=== PATIENT | male | born 1985 | race Caucasian/White ===

== ENCOUNTER 2018-02-22 07:19 | Day surgery (SDC) | payer OTHER ==
[2018-02-21 11:26] VITALS: BMI 33.2
[2018-02-22] MEDS ORDERED: MIDAZOLAM HCL 2 MG/2 ML SINGLE DOSE VIAL ONE ×2 (10:13)
[2018-02-22] MEDS ORDERED: SUCCINYLCHOLINE CHLORIDE 200 MG/10 ML VIAL ONE (10:18)
--- NOTE | 2018-02-22 10:19 | HP ---
Admitting History and Physical - Admission Chief Complaint: Right chest wall mass History Source: Patient Limitations to Obtaining History: No Limitations - Smoking History Smoking history: Never smoked Aproximately how many cigarettes per day: 0 - Alcohol/Substance Use Hx Alcohol Use: No Home Medications - Allergies Allergies/Adverse Reactions: Allergies Allergy/AdvReac Type Severity Reaction Status Date / Time No Known Allergies Allergy Verified 02/22/18 08:16 - Home Medications Home Medications: Ambulatory Orders Acetaminophen [Tylenol] 325 mg PO PRN 02/21/18 Family Disease History - Family Disease History Family History: Unremarkable Review of Systems - Review of Systems Constitutional: denies: Chills, Fever Eyes: reports: No Symptoms Neck: reports: No Symptoms Cardiovascular: reports: No Symptoms Respiratory: reports: No Symptoms Gastrointestinal: reports: No Symptoms Pain Intensity: 2 Physical Examination Vital Signs: Vital Signs Temperature 98.6 F 02/22/18 08:16 Pulse Rate 77 02/22/18 08:16 Respiratory Rate 20 02/22/18 08:16 Blood Pressure 139/85 02/22/18 08:16 O2 Sat by Pulse Oximetry (%) 98 02/22/18 08:03 Constitutional: Yes: Calm HENT: Yes: WNL Neck: Yes: WNL Cardiovascular: Yes: WNL Respiratory: Yes: WNL Gastrointestinal: Yes: WNL Musculoskeletal: Yes: Other (Right chest wall mass) Neurological: Yes: Alert, Oriented Problem List - Problems (1) Mass of right chest wall Code(s): R22.2 - LOCALIZED SWELLING, MASS AND LUMP, TRUNK Assessment/Plan Right chest wall mass For open excision
[2018-02-22] MEDS ORDERED: ceFAZolin SODIUM 1 GM VIAL IVPB ONE (10:22)
[2018-02-22] MEDS ORDERED: LIDOCAINE 1%/EPI 1:100000 (50 ML MULTI DOSE VIAL) INF ONE ×2 (10:33)
[2018-02-22] MEDS ORDERED: PROMETHAZINE HCL 25 MG/1 ML VIAL IVPUSH PRN (11:13)
[2018-02-22] MEDS ORDERED: oxyCODONE HCL 5 MG TABLET PO PRN (11:13)
[2018-02-22] MEDS ORDERED: ONDANSETRON 4 MG/2 ML VIAL IVPUSH PRN (11:13)
[2018-02-22] MEDS ORDERED: LACTATED RINGERS SOLUTION 1,000 ML IV SCH (11:15)
[2018-02-22 11:47] VITALS: TEMP 98
--- NOTE | 2018-02-22 11:54 | OP ---
Operative Note - Note: Operative Date: 02/22/18 Pre-Operative Diagnosis: Right chest wall mass Operation: Excision of Right chest wall mass Post-Operative Diagnosis: Same as Pre-op Surgeon: Rian Luz Anesthesia: General Specimens Removed: Right chest wall mass Estimated Blood Loss (mls): 5 Operative Report Dictated: Yes
--- NOTE | 2018-02-22 12:21 | OP ---
DATE OF OPERATION: 02/22/2018 PREOPERATIVE DIAGNOSIS: Right chest wall mass. POSTOPERATIVE DIAGNOSIS: Right chest wall mass. PROCEDURE: Except of chest wall mass. SPECIMEN: Right chest wall mass approximately 6 cm x 5 cm in size. ESTIMATED BLOOD LOSS: 5 mL. DRAINS: None. ANESTHESIA: General and local. REASON FOR PROCEDURE: This is a 32-year-old gentleman who presented to the office for evaluation of a right chest wall mass. After evaluation and explained the different options, he decided to proceed with an excision of the right chest wall mass. Risks and benefits of the procedure were explained. These included bleeding, infection, injury to surrounding structures, nerve injury, vessel injury, hematoma, seroma, recurrence, WA, DVT, PE as some of the complications. He understood and signed informed consent. DESCRIPTION OF PROCEDURE: The patient was placed supine on the operating room table. The area was prepped and draped in the usual sterile fashion. A time-out was performed. Lidocaine with epinephrine was injected over the area, and an incision was made with a 15-blade scalpel. The skin and subcutaneous tissue were dissected. Metzenbaum scissors were used to dissect the mass. The mass was noted to be fatty consistent with a likely lipoma. The mass was circumferentially dissected with a combination of Metzenbaum scissors and electrocautery. The mass was full excised and sent off the field. Hemostasis was achieved. The wound was irrigated. The deep tissue was closed using 3-0 Vicryl and the skin closed using 4-0 Biosyn. Sterile dressings were applied. The patient tolerated the procedure well and was transferred to the recovery room in stable condition. GERALD BUITRAGO M.D. [id number]
[2018-02-22 13:24] VITALS: BP 148/79; PULSE 76
--- NOTE | 2018-02-23 18:32 | PATH ---
Surgical Pathology Report Patient Name: CORTNEY SMILEY Med. Rec. #: [id number] /Age/Gender: 1985 (Age: 32) / M Account: [id number] Location: [facility] SURGICAL Taken: 02/22/2018 Received: 02/22/2018 Reported: 02/23/2018 Physicians: Rian Luz M.D. Specimen(s) Received MASS OF RIGHT CHEST WALL Clinical History Excision right chest wall mass Final Diagnosis RIGHT CHEST WALL MASS, EXCISION: MATURE ADIPOSE TISSUE, CONSISTENT WITH LIPOMA. Electronically Signed Mitzi Arroyo M.D. Gross Description Received in formalin, labeled "right chest wall mass" is a piece of yellow soft tissue weighing 13 g and measuring 4 x 3.2 x 1.7 cm. serial sections reveal homogeneous yellow adipose tissue. Precision [employer] sections are submitted in 2 cassettes. [place]/02/22/2018
== END 2018-02-22 13:31 | disposition home or self-care (01) ==
LOC: JASU-SURG 07:19
PROVIDERS: ATTEND Surgery
PROC: 0JB60ZZ Excision of Chest Subcutaneous Tissue and Fascia, Open Approach (ICD-10-PCS; principal; 2018-02-22 10:00)
DX: D17.1 Benign lipomatous neoplasm of skin and subcutaneous tissue of trunk (principal)
CPT/HCPCS: 88307-TC; 94760

== ENCOUNTER 2019-02-09 09:55 | Day surgery (SDC) | payer OTHER ==
[2019-02-08 15:06] VITALS: BMI 33.0
[2019-02-09 11:45] VITALS: TEMP 97.5
[2019-02-09 12:04] VITALS: BP 110/80; PULSE 68
--- NOTE | 2019-02-13 11:52 | PATH ---
Surgical Pathology Report Patient Name: CORTNEY SMILEY [facility]. Rec. #: [id number] /Age/Gender: 1985 (Age: 33) / M Account: [id number] Location: [facility] Taken: 02/09/2019 Received: 02/09/2019 Reported: 02/13/2019 Physicians: Terrell Reaves D.O. Specimen(s) Received A: POLYP FUNDUS B: BODY ANGULARIS Clinical History Abdominal discomfort Postoperative diagnosis: Gastritis and fundic polyp Polyp fundus r/o adenoma, body and angularis r/o H. pylori Final Diagnosis A. FUNDUS, POLYP, BIOPSY: MODERATE CHRONIC ACTIVE GASTRITIS, POLYPOID. IMMUNOSTAIN IS NEGATIVE FOR H. PYLORI ORGANISMS. B. BODY AND ANGULARIS, BIOPSY: MODERATE CHRONIC ACTIVE GASTRITIS. IMMUNOSTAIN IS NEGATIVE FOR H. PYLORI ORGANISMS. Electronically Signed Za Mast M.D. Gross Description A. Received in formalin, labeled "polyp fundus" are 2 lees, irregular portions of soft tissue averaging 0.3 cm. in greatest dimension. The specimens are submitted in toto in one cassette. B. Received in formalin, labeled "biopsy body and angularis" are 4 lees, irregular portions of soft tissue ranging from 0.2-0.4 cm. in greatest dimension. The specimens are submitted in toto in one cassette. 02/09/2019 saudi02/09/2019
== END 2019-02-09 12:34 | disposition home or self-care (01) ==
LOC: JASU-ENDO 09:55
PROVIDERS: ATTEND Internal Medicine Gastroenterology
PROC: 0DB68ZX Excision of Stomach, Via Natural or Artificial Opening Endoscopic, Diagnostic (ICD-10-PCS; principal; 2019-02-09 10:45)
DX: K29.50 Unspecified chronic gastritis without bleeding (principal); K31.7 Polyp of stomach and duodenum
CPT/HCPCS: 88305-TC; 88342-TC

== ENCOUNTER 2019-05-08 22:46 | Inpatient (IN) | payer OTHER ==
--- NOTE | 2019-05-08 23:11 | PDOC ---
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 The patient states his left leg also has pain described as an "zambian burn." The patient states he has never had this type of pain before. The patient denies any weakness, word slurring, facial weakness, headache, or neck pain. The patient originally denies any trauma to the affected areas. Upon further history the patient's friend at bedside who the patient states is a "brother from another mother" reminds the patient that he fell down 1 week ago and hit his left neck, left arm , and left leg. PCP: Dr. Sifuentes PSH: lipoma removal Social Hx: Denies smoking, drinking, or other substance usage Allergies: NKA, NKDA Past History - Past Medical History Allergies/Adverse Reactions: Allergies Allergy/AdvReac Type Severity Reaction Status Date / Time No Known Allergies Allergy Verified 02/22/18 08:16 Home Medications: Ambulatory Orders Cholecalciferol (Vitamin D3) [Vitamin D -] 400 unit PO DAILY 02/09/19 Pantoprazole Sodium [Protonix -] 20 mg PO DAILY #30 tablet.ec 02/09/19 Anemia: No Asthma: No Cancer: No Cardiac Disorders: No CVA: No COPD: No CHF: No Dementia: No Diabetes: No GI Disorders: Yes (H.PYLORI POSITIVE FINISHED ANTIBIOTIC [place]-01/16/19) Disorders: No HTN: No Hypercholesterolemia: Yes Liver Disease: No Seizures: No Thyroid Disease: No - Suicide/Smoking/Psychosocial Hx Smoking Status: No Smoking History: Never smoked Have you smoked in the past 12 months: No Number of Cigarettes Smoked Daily: 0 Hx Alcohol Use: No Drug/Substance Use Hx: No Substance Use Type: None Hx Substance Use Treatment: No Review of Systems - Review of Systems Able to Perform ROS?: Yes Comments:: CONSTITUTIONAL: Absent: fever, no chills, no fatigue EYES: Absent: visual changes ENT: Absent: ear pain, no sore throat CARDIOVASCULAR: Absent: chest pain, no palpitations RESPIRATORY: Absent: cough, no SOB GI: Absent: abdominal pain, no nausea, no vomiting, no constipation, no diarrhea GENITOURINARY: Absent: dysuria, no frequency, no hematuria MUSKULOSKELETAL: Present: Arthralgia Absent: back pain, no myalgia SKIN: Absent: rash NEURO: Present: focal weakness and paresthesias, Absent: headache, dizziness, unsteady gait, seizure, mental status changes, bladder or bowel incontinence *Physical Exam - Vital Signs Last Vital Signs Temp Pulse Resp BP Pulse Ox 98.4 F 94 H 18 168/96 97 05/08/19 22:57 05/08/19 22:57 05/08/19 22:57 05/08/19 22:57 05/08/19 22:57 - Physical Exam Comments: GENERAL: Well-appearing, well-nourished. No apparent distress. HEENT: Normocephalic, atraumatic. PERRL, EOM intact. CARDIOVASCULAR: Normal S1, S2. Regular rate and rhythm. PULMONARY: No evidence of respiratory distress. Lungs clear to auscultation bilaterally. No wheezing, rales or rhonchi. ABDOMEN: Soft, non-distended, non-tender. EXTREMITIES: Normal ROM in all four extremities. No gross deformities. SKIN: Warm, dry. No rash NEUROLOGICAL: Alert, awake, appropriate. Cranial nerves 2-12 intact. No deficits to light touch in face, upper extremities and lower extremities. No motor deficits in the in face, upper extremities and lower extremities. Normal speech. Gait is normal without ataxia. NIH Stroke Scale - Last Known Well Date/Time & Onset Date Last Known Well: 05/07/19 Time Last Known Well: 08:00 - Initial Evaluation Level of consciousness: Alert Ask patient the month and their age: Answers both correctly Ask patient to open & close eyes; make fist and let go: Obeys both correctly Best gaze (horizontal eye movement): Normal Visual field testing: No visual field loss Facial paresis (Show teeth/raise eyebrows/close eyes tight): Normal symmetrical movement Motor Function: Left Arm: Normal Motor Function: Right Arm: Normal (extends arm 90 (or 45) degrees for 10 seconds without drift Motor Function: Left Leg: Normal (extends leg 30 degrees for 5 seconds without drift) Motor Function: Right Leg: Normal (extends leg 30 degrees for 5 seconds without drift) Limb Ataxia: No ataxia Sensory(Use pinprick test arms,legs,trunk,face/side to side): Normal Best language (Describe picture, name items, read sentences): No Aphasia Dysarthria (read several words): Normal articulation Extinction and Inattention: No abnormality - Total Score NIH Stroke Scale Score: 0 tPA Exclusion checklist 3-4.5h - Time Elapsed Date last known well: 05/07/19 Time last known well: 08:00 Elaspsed time: 1 Day(s) and 16 Hour(s) and 44 Minutes - Thrombolytic Therapy Candidate Is patient eligible for thrombolytic therapy: No - Exclusion Criteria 3-4.5 hr SBP greater than 185 or DBP greater than 110mmHg despite tx: No Recent IC/spinal surgery,head trauma or stroke<3mos.: No Hx IC hemorrhage, IC neoplasm, AV malformation or aneurysm: No Active internal bleeding: No Blding diathesis(low plt ct, inc PTT,INR>1.7 or use of NOAC): No Symptoms suggest subarachnoid hemorrhage: No CT demonstrates multilobar infarct(>1/3 cerebral hemiphere): No Arterial puncture at noncompressible site in previous 7 days: No Blood glucose concentration less than 50mg/dL (2.7mmol/L): No - Relative Exclusion Criteria 3-4.5 hr Life expectancy <1 yr or severe co-morbid illness: No : No Patient/family refused: No Rapid improvement: Yes Stroke severity too mild: Yes Recent acute SD (w/in previous 3 months): No Seizure at onset with postictal residual neuro impairments: No Major surgery or serious trauma w/in previous 14 days: No Recent GI or hemorrhage (w/in previous 21 days): No - Add'l Relative Exclusion 3-4.5 hr Age > 80: No Hx of both diabetes AND prior ischemic stroke: No Taking an oral anticoagulant regardless of INR: No NIHSS >25: No - Ineligibility reason(s) Reasons No tPA given: Outside of window - delayed arrival, See reason(s) noted above Critical Care Time/MDM Note - Medical Decision Making Note: 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 The patient states his left leg also has pain described as an "zambian burn." The patient states he has never had this type of pain before. The patient denies any weakness, word slurring, facial weakness, headache, or neck pain. The patient originally denies any trauma to the affected areas. Upon further history the patient's friend at bedside who the patient states is a "brother from another mother" reminds the patient that he fell down 1 week ago and hit his left neck, left arm , and left leg. Vital Signs Temp Pulse Resp BP Pulse Ox 98.4 F 94 H 18 168/96 97 05/08/19 22:57 05/08/19 22:57 05/08/19 22:57 05/08/19 22:57 05/08/19 22:57 MDM: Patient presents with left arm and leg numbness, tingling, and paresthesias concerning for a stroke vs nerve compression. Plan: Labs, Head/neck ct, re-assess. Call from imaging english as a second language teacher regarding CT findings for Fabian Shine: There is an area of low attenuation in the right frontal convexity. Loss of magallon/white matter demarcation in this small area. Radiologist: Dr. Sierra Head CT: CT HEAD: Low-attenuation within the right frontal convexity in the parafalcine location with loss of the magallon-white matter demarcation with small parenchymal calcifications. Differential considerations include an acute infarct versus vasogenic edema due to an underlying partially calcified mass. A follow-up MRI of the brain with contrast is advised No evidence of hemorrhage, mass effect, midline shift, or extra-axial collections. 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 No prevertebral soft tissue swelling Small bilateral tonsilloliths Disposition: Admit to hospital for MRI and neuro consult *DC/Admit/Observation/Transfer Diagnosis at time of Disposition: Left arm numbness, Left leg paresthesias, Brain lesion, Abnormal head CT - Discharge Dispostion Condition at time of disposition: Stable Decision to Admit order: Yes - Referrals Referrals: Annabi,Iyad, MD [Primary Care Provider] - - Patient Instructions - Post Discharge Activity
--- NOTE | 2019-05-08 23:14 | PDOC ---
Attending Attestation - Resident Resident Name: Hernán Hill - ED Attending Attestation I have performed the following: I have examined & evaluated the patient, The case was reviewed & discussed with the resident, I agree w/resident's findings & plan - HPI HPI: 05/09/19 01:55 see resident hpi - Physicial Exam PE: 05/09/19 01:55 agree with resident exam - Medical Decision Making 05/09/19 01:59 34-year-old male with left upper extremity and left lower extremity intermittent tingling On reevaluation patient now also admits to low back and left neck pain CT scan of the brain showed a questionable lesion in the right frontal lobe, hypodense CVA versus calcified mass MRI is ordered of the brain cervical spine and lumbar spine Patient will be admitted to hospitalist service for further evaluation At this time objective exam, sensory and motor is intact
[2019-05-08] MEDS ORDERED: ASPIRIN 81 MG CHEWABLE TABLETS PO ONE (23:23)
[2019-05-08] MEDS ORDERED: SODIUM CHLORIDE 1,000 ML IV SCH (23:30)
[2019-05-08] MEDS ORDERED: ASPIRIN 81 MG CHEWABLE TABLETS ONE (23:41)
[2019-05-08 23:48] LABS: BASO % 0.7 % (0-2.0); EOS % 0.8 % (0-4.5); HEMOGLOBIN 16.2 GM/dL (11.7-16.9); MCH 30.3 pg (25.7-33.7); MCHC 33.7 g/dl (32.0-35.9); MEAN CELL VOLUME 89.9 fl (80-96); MEAN PLT VOLUME 9.1 fl (7.5-11.1); MONO % 9.4 % (3.8-10.2); NEUT % 57.1 % (42.8-82.8); PLATELET COUNT 313 K/MM3 (134-434); RBC 5.34 M/mm3 (4.00-5.60); RDW 13.3 % (11.9-15.9); WHITE BLOOD COUNT 7.9 K/mm3 (4.0-10.0)
[2019-05-09 00:06] LABS: INR 1.02 (0.83-1.09)
[2019-05-09 00:16] LABS: ALBUMIN 4.8 g/dl (3.4-5.0); BILIRUBIN,TOTAL 1.2 mg/dL (0.2-1); CALCIUM 9.8 mg/dL (8.5-10.1); CREATININE 1.1 mg/dL (0.55-1.3); TOT PROT 8.4 g/dl (6.4-8.2)
--- NOTE | 2019-05-09 01:58 | HP ---
Admitting History and Physical - Primary Care Physician PCP: Dr. alfaro - Admission Chief Complaint: left arm and leg numbness History of Present Illness: 34 year old male with PMH of HLD arrived to ED for left upper arm and left lower leg numbness, paresthesias that started last night. Left lower leg also has pain " described as burning feeling. As per patient he fell a week ago tripped on the stairs and landed on left side. At the time of fall did not lose LOC, did have discoloration on the right big toe which is plaster tender to touch. Patient did say he was stressed and has not slept for 3-4 days since his father is admitted at [facility]. Patient denies weakness, word slurring, facial weakness, headache. History Source: Patient Limitations to Obtaining History: No Limitations - Past Medical History Cardiovascular: Yes: Hyperlipdemia - Past Surgical History Additional Past Surgical History: lipoma removal - Smoking History Smoking history: Never smoked Have you smoked in the past 12 months: No Aproximately how many cigarettes per day: 0 - Alcohol/Substance Use Hx Alcohol Use: No History of Substance Use: reports: None - Social History History of Recent Travel: No Home Medications - Allergies Allergies/Adverse Reactions: Allergies Allergy/AdvReac Type Severity Reaction Status Date / Time No Known Allergies Allergy Verified 02/22/18 08:16 - Home Medications Home Medications: Ambulatory Orders Cholecalciferol (Vitamin D3) [Vitamin D -] 400 unit PO DAILY 02/09/19 Pantoprazole Sodium [Protonix -] 20 mg PO DAILY #30 tablet.ec 02/09/19 Family Medical History Family Hx Cardiac Disorders: Father Review of Systems - Review of Systems Constitutional: reports: No Symptoms Eyes: reports: No Symptoms HENT: reports: No Symptoms Neck: reports: Pain on Movement, Stiffness Cardiovascular: reports: No Symptoms Respiratory: reports: No Symptoms Gastrointestinal: reports: No Symptoms Genitourinary: reports: No Symptoms Breasts: reports: No Symptoms Reported Musculoskeletal: reports: Back Pain, Decreased ROM (complain decrese ROM of neck ) Integumentary: reports: No Symptoms Neurological: reports: Numbness (LE/UE numbness), Parasthesia Endocrine: reports: No Symptoms Hematology/Lymphatic: reports: No Symptoms Psychiatric: reports: No Symptoms Physical Examination Vital Signs: Vital Signs Temperature 98.4 F 05/08/19 22:57 Pulse Rate 94 H 05/08/19 22:57 Respiratory Rate 18 05/08/19 22:57 Blood Pressure 168/96 05/08/19 22:57 O2 Sat by Pulse Oximetry (%) 97 05/08/19 22:57 Constitutional: Yes: No Distress, Calm Eyes: Yes: Conjunctiva Clear, EOM Intact HENT: Yes: Atraumatic, Normocephalic Neck: Yes: Supple, Trachea Midline, Other (neck pain with some diffculty with ROM) Cardiovascular: Yes: Regular Rate and Rhythm Respiratory: Yes: Regular, CTA Bilaterally Gastrointestinal: Yes: Normal Bowel Sounds, Soft Musculoskeletal: Yes: WNL Extremities: Yes: WNL Edema: No Peripheral Pulses WNL: Yes Integumentary: Yes: WNL Neurological: Yes: Alert, Oriented ...Motor Strength: WNL Psychiatric: Yes: Oriented Labs: CBC, BMP 05/08/19 23:29 05/08/19 23:29 Imaging - Results Cat Scan: Report Reviewed ( CT HEAD:Low-attenuation within the right frontal convexity in the parafalcine location with loss of the magallon-white matter demarcation with small parenchymal calcifications. Differential considerations include an acute infarct versus vasogenic edema due to an underlying partially calcified mass.No evidence of hemorrhage, mass effect, midline shift, or extra- axial collections. 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 No fractures, subluxations, or jumped facets. No prevertebral soft tissue swelling. Small bilateral tonsilloliths) Problem List - Problems (1) Left leg paresthesias Code(s): R20.2 - PARESTHESIA OF SKIN (2) Abnormal head CT Code(s): R93.0 - ABNORMAL FINDINGS ON DX IMAGING OF SKULL AND HEAD, NEC (3) Left arm numbness Code(s): R20.0 - ANESTHESIA OF SKIN (4) Lumbar back pain Code(s): M54.5 - LOW BACK PAIN (5) Cervical pain (neck) Code(s): M54.2 - CERVICALGIA (6) HLD (hyperlipidemia) Code(s): E78.5 - HYPERLIPIDEMIA, UNSPECIFIED Assessment/Plan 34 year old male with PMH of HLD arrived to ED for left upper arm and left lower leg numbness, paresthesias that started last night. S/P fall 1 week landed on left side. #R/o stroke vs calcified mass # Cervical/ Lumbar pain CT HEAD: Low-attenuation within the right frontal convexity in the parafalcine location with loss of the magallon-white matter demarcation with small parenchymal calcifications. Differential considerations include an acute infarct versus vasogenic edema due to an underlying partially calcified mass. No evidence of hemorrhage, mass effect, midline shift, or extra-axial collections. 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 pt outside the window of tPA - follow MRI of brain - follow up MRI of C and L spine - follow up Neurology in AM - neck brace in place - pain management - safety/fall precaution #HLD - was on crestor, however non-compliant with medication Visit type - Emergency Visit Emergency Visit: Yes ED Registration Date: 05/09/19 Care time: The patient presented to the Emergency Department on the above date and was hospitalized for further evaluation of their emergent condition. - New Patient This patient is new to me today: Yes Date on this admission: 05/09/19 - Critical Care Critical Care patient: No
--- NOTE | 2019-05-09 08:44 | CONSULT ---
Consult - text type - Consultation Consultation Note: [facility] *LIVE* Neurology - Admission Chief Complaint: left arm and leg numbness History of Present Illness: 34 year old male with PMH of HLD arrived to ED for left upper arm and left lower leg numbness, paresthesias that started last night prior to admission. Left lower leg also has pain " described as burning feeling. As per patient he fell a week ago tripped on the stairs and landed on left side. 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 Patient did say he was stressed and has not slept for 3- 4 days since his father is admitted at [facility]. Patient denies weakness, word slurring, facial weakness, headache. Head CT and cervical CT completed, per Er notes demonstrated llow attenuation in the right frontal convexityin the parafalcine location.. MRI with contrast of the brain was recommended. 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 There was no fracture or subluxations or jump facets. the patient does report continued sensory paresthesias in his left upper extremity and further imaging of the brain and spine were ordered. f note, patient reportedly with hyperlipidemia wasn't taking statin. Also not on aspirin. recommend patient being on both medications at this time until MRI brain completed. - Past Medical History Cardiovascular: Yes: Hyperlipdemia - Past Surgical History Additional Past Surgical History: lipoma removal - Smoking History Smoking history: Never smoked Have you smoked in the past 12 months: No Aproximately how many cigarettes per day: 0 - Alcohol/Substance Use Hx Alcohol Use: No History of Substance Use: reports: None - Social History History of Recent Travel: No Home Medications - Allergies Allergies/Adverse Reactions: Allergies Allergy/AdvReac Type Severity Reaction Status Date / Time No Known Allergies Allergy Verified 02/22/18 08:16 - Home Medications Home Medications: Ambulatory Orders Cholecalciferol (Vitamin D3) [Vitamin D -] 400 unit PO DAILY 02/09/19 Pantoprazole Sodium [Protonix -] 20 mg PO DAILY #30 tablet.ec 02/09/19 Active Medications Sodium Chloride (Normal Saline -) 1,000 mls @ 42 mls/hr IV ASDIR DEVAN Last Admin: 05/08/19 23:30 Dose: 42 mls/hr Family Medical History Family Hx Cardiac Disorders: Father, heart diseasse Review of Systems - Review of Systems Constitutional: reports: No Symptoms Eyes: reports: No Symptoms HENT: reports: No Symptoms Neck: reports: Pain on Movement, Stiffness Cardiovascular: reports: No Symptoms Respiratory: reports: No Symptoms Gastrointestinal: reports: No Symptoms Genitourinary: reports: No Symptoms Breasts: reports: No Symptoms Reported Musculoskeletal: reports: Back Pain, Decreased ROM (complain decrese ROM of neck ) Integumentary: reports: No Symptoms Neurological: reports: Numbness (LE/UE numbness), Parasthesia Endocrine: reports: No Symptoms Hematology/Lymphatic: reports: No Symptoms Psychiatric: reports: No Symptoms Physical Examination Vital Signs: Vital Signs Period Temp Pulse Resp BP Sys/Garcia Pulse Ox Last 24 Hr 98.4 F 94 18 168/96 97-99 Constitutional: Yes: No Distress, Calm Eyes: Yes: Conjunctiva Clear, EOM Intact HENT: Yes: Atraumatic, Normocephalic Neck: Yes: Supple, Trachea Midline, Other (neck pain with some diffculty with ROM) Cardiovascular: Yes: Regular Rate and Rhythm Respiratory: Yes: Regular, CTA Bilaterally Gastrointestinal: Yes: Normal Bowel Sounds, Soft Musculoskeletal: Yes: WNL Extremities: Yes: WNL Edema: No Peripheral Pulses WNL: Yes Integumentary: Yes: WNL Neurological: aawake, alert, no slurred speech, cranial nerves intact, strength 5/5 in upper and lower extremities bilaterally, sensory reduced in left upper extremity to pinprick CBCD WBC 7.9 K/mm3 (4.0-10.0) 05/08/19 23:29 RBC 5.34 M/mm3 (4.00-5.60) 05/08/19 23:29 Hgb 16.2 GM/dL (11.7-16.9) 05/08/19 23:29 Hct 48.0 % (35.4-49) 05/08/19 23:29 MCV 89.9 fl (80-96) 05/08/19 23:29 MCHC 33.7 g/dl (32.0-35.9) 05/08/19 23:29 RDW 13.3 % (11.9-15.9) 05/08/19 23:29 Plt Count 313 K/MM3 (134-434) 05/08/19 23: MPV 9.1 fl (7.5-11.1) 05/08/19 23: CMP Sodium 139 mmol/L (136-145) 05/08/19 23: Potassium 4.0 mmol/L (3.5-5.1) 05/08/19: Chloride 101 mmol/L (98-107) 05/08/19: Carbon Dioxide 28 mmol/L (21-32) 05/08/19: Anion Gap 11 MMOL/L (8-16) 05/08/19: BUN 15.0 mg/dL (7-18) 05/08/19: Creatinine 1.1 mg/dL (0.55-1.3) 05/08/19: Random Glucose 105 mg/dL (74-106) 05/08/19: Calcium 9.8 mg/dL (8.5-10.1) 05/08/19: Total Bilirubin 1.2 mg/dL (0.2-1) H 05/08/19 23:29 AST 19 U/L (15-37) 05/08/19: ALT 49 U/L (13-61) 05/08/19: Alkaline Phosphatase 93 U/L (45-117) 05/08/19: Total Protein 8.4 g/dl (6.4-8.2) H 05/08/19: Albumin 4.8 g/dl (3.4-5.0) 05/08/19: CARDIAC ENZYMES Troponin I < 0.02 ng/ml (0.00-0.05) 05/08/19:29 Assessment/Plan 34 year old male with PMH of HLD arrived to ED for left upper arm and left lower leg numbness, paresthesias that started last night prior to admission. Left lower leg also has pain " described as burning feeling. As per patient he fell a week ago tripped on the stairs and landed on left side. 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 Patient did say he was stressed and has not slept for 3- 4 days since his father is admitted at [facility]. Patient denies weakness, word slurring, facial weakness, headache. Head CT and cervical CT completed, per Er notes demonstrated llow attenuation in the right frontal convexityin the parafalcine location.. MRI with contrast of the brain was recommended. 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 There was no fracture or subluxations or jump facets. the patient does report continued sensory paresthesias in his left upper extremity and further imaging of the brain and spine were ordered. f note, patient reportedly with hyperlipidemia wasn't taking statin. Also not on aspirin. recommend patient being on both medications at this time until MRI brain completed. Avoid ignificant strain on neck, physical therapy as tolerated.
--- NOTE | 2019-05-09 10:58 | EKG ---
Test Reason : Blood Pressure : / mmHG Vent. Rate : 075 BPM Atrial Rate : 075 BPM P-R Int : 146 ms QRS Dur : 100 ms QT Int : 376 ms P-R-T Axes : 053 010 025 degrees QTc Int : 419 ms POOR DATA QUALITY, INTERPRETATION MAY BE ADVERSELY AFFECTED NORMAL SINUS RHYTHM NORMAL ECG WHEN COMPARED WITH ECG OF 26-JAN-2014 10:54, NONSPECIFIC T WAVE ABNORMALITY HAS REPLACED INVERTED T WAVES IN INFERIOR LEADS Confirmed by Rashi Alexander ([id number]) on 05/09/2019 10:57:42 AM Referred By: Confirmed By:Rashi Alexander
--- NOTE | 2019-05-09 11:33 | PN ---
Progress Note, Physician Chief Complaint: Left UE paresthesia History of Present Illness: NAD Seen by Neurology Going for MRI brain and lumbar spine CT Head/Cervical spine:Fusion of C2 and C3 and congenital nonfusion of C1 posterior arch. Straightening of the cervical spine without evidence of a fracture or subluxation. - Current Medication List Current Medications: Active Medications Aspirin (Ecotrin -) 81 mg PO DAILY DEVAN Atorvastatin Calcium (Lipitor -) 80 mg PO HS DEVAN Sodium Chloride (Normal Saline -) 1,000 mls @ 42 mls/hr IV ASDIR DEVAN Last Admin: 05/08/19 23:30 Dose: 42 mls/hr - Objective Vital Signs: Vital Signs Temperature 97.9 F 05/09/19 08:48 Pulse Rate 86 05/09/19 08:48 Respiratory Rate 18 05/09/19 08:48 Blood Pressure 131/85 05/09/19 08:48 O2 Sat by Pulse Oximetry (%) 100 05/09/19 08:49 Constitutional: Yes: Well Nourished, No Distress, Calm Cardiovascular: Yes: Regular Rate and Rhythm Respiratory: Yes: Regular Gastrointestinal: Yes: Normal Bowel Sounds, Soft Genitourinary: Yes: WNL Musculoskeletal: Yes: Back Pain Extremities: Yes: WNL Edema: No Peripheral Pulses WNL: Yes Neurological: Yes: Alert, Oriented, Paresthesia (LUE,LLE) Psychiatric: Yes: Alert, Oriented Labs: CBC, BMP 05/08/19 23:29 05/08/19 23:29 INR, PTT INR 1.02 (0.83-1.09) 05/08/19 23:29 Problem List - Problems (1) Cervical pain (neck) Assessment/Plan: -neurology consult appreciated -CT C Spine+ head reviewed Code(s): M54.2 - CERVICALGIA (2) HLD (hyperlipidemia) Assessment/Plan: -Restart high intensity statin + aspirin 81 mg po daily Code(s): E78.5 - HYPERLIPIDEMIA, UNSPECIFIED (3) Left arm numbness Assessment/Plan: -neurology consult appreciated -CT C Spine+ head reviewed -Await MRI brain results Code(s): R20.0 - ANESTHESIA OF SKIN (4) Left leg paresthesias Assessment/Plan: -await MRI lumbar spine Code(s): R20.2 - PARESTHESIA OF SKIN (5) Lumbar back pain Code(s): M54.5 - LOW BACK PAIN Assessment/Plan see problem list
[2019-05-09 13:54] LABS: PH,URINE 8.5 (5.0-8.0); URINE APPEARANCE CLEAR; URINE BILIRUBIN NEGATIVE (NEGATIVE); URINE COLOR YELLOW; URINE GLUCOSE (UA) NEGATIVE (NEGATIVE); URINE KETONE NEGATIVE (NEGATIVE); URINE LEUK ESTERASE NEGATIVE (NEGATIVE); URINE NITRITE NEGATIVE (NEGATIVE); URINE PROTEIN NEGATIVE (NEGATIVE); URINE UROBILINOGEN 0.2 mg/dL (0.2-1.0)
[2019-05-09 16:41] VITALS: BMI 33.8
[2019-05-09] MEDS ORDERED: ACETAMINOPHEN 325 MG TABLET (FP) PO PRN (17:49)
[2019-05-09] MEDS ORDERED: ATORVASTATIN CA 80 MG TABLET (FP) PO SCH (22:00)
--- NOTE | 2019-05-10 08:35 | PN ---
Progress Note (short form) - Note Progress Note: Neurology - Admission Chief Complaint: left arm and leg numbness History of Present Illness: 34 year old male with PMH of HLD arrived to ED for left upper arm and left lower leg numbness, paresthesias that started last night prior to admission. Left lower leg also has pain " described as burning feeling. As per patient he fell a week ago tripped on the stairs and landed on left side. 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 Patient did say he was stressed and has not slept for 3- 4 days since his father is admitted at [facility]. Patient denies weakness, word slurring, facial weakness, headache. Head CT and cervical CT completed, per Er notes demonstrated llow attenuation in the right frontal convexityin the parafalcine location.. MRI with contrast of the brain was recommended. 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 There was no fracture or subluxations or jump facets. the patient does report continued sensory paresthesias in his left upper extremity and further imaging of the brain and spine were ordered. patient was started on statin due to LDL of 192, can reduce dose to 40mg. Overnight, MRI of the brain was completed and demonstrated 1.8 x 1.4 x 1.4 cm mass. Informed nurse practitionerand recommended neurosurgery and oncology evaluation. 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 There is presence of edema therefore I started Decadron 6 mg every 6 hours. Cervical spine MRI reviewed and did not demonstrate any cervical herniations, stenosis, normal spinal cord signal. Lumbar spine MRI didn't demonstrate L4/L5 protrusion and L5/S1 disc extrusion. Explain results in detail to the patient who was surprised by presence of intracerebral growth. Provided reassurance and counseling, informed him that further subspecialists would beevaluated further. - Allergies Allergies/Adverse Reactions: Allergies Allergy/AdvReac Type Severity Reaction Status Date / Time No Known Allergies Allergy Verified 02/22/18 08:16 Active Medications Acetaminophen (Tylenol -) 650 mg PO Q4H PRN PRN Reason: PAIN OR FEVER Aspirin (Ecotrin -) 81 mg PO DAILY DEVAN Atorvastatin Calcium (Lipitor -) 80 mg PO HS DEVAN Last Admin: 05/09/19 22:09 Dose: 80 mg Physical Examination Vital Signs: Vital Signs Period Temp Pulse Resp BP Sys/Garcia Pulse Ox Last 24 Hr 97.9 F-98.1 F 59-97 17-22 114-133/64-96 96-100 Constitutional: Yes: No Distress, Calm Eyes: Yes: Conjunctiva Clear, EOM Intact HENT: Yes: Atraumatic, Normocephalic Neck: Yes: Supple, Trachea Midline, Other (neck pain with some diffculty with ROM) Cardiovascular: Yes: Regular Rate and Rhythm Respiratory: Yes: Regular, CTA Bilaterally Gastrointestinal: Yes: Normal Bowel Sounds, Soft Musculoskeletal: Yes: WNL Extremities: Yes: WNL Edema: No Peripheral Pulses WNL: Yes Integumentary: Yes: WNL Neurological: aawake, alert, no slurred speech, cranial nerves intact, strength 5/5 in upper and lower extremities bilaterally, sensory reduced in left upper extremity to pinprick CBCD WBC 7.9 K/mm3 (4.0-10.0) 05/08/19 23: RBC 5.34 M/mm3 (4.00-5.60) 05/08/19 23:29 Hgb 16.2 GM/dL (11.7-16.9) 05/08/19 23: Hct 48.0 % (35.4-49) 05/08/19 23: MCV 89.9 fl (80-96) 05/08/19 23:29 MCHC 33.7 g/dl (32.0-35.9) 05/08/19 23: RDW 13.3 % (11.9-15.9) 05/08/19 23: Plt Count 313 K/MM3 (134-434) 05/08/19 23:29 MPV 9.1 fl (7.5-11.1) 05/08/19 23: CMP Sodium 139 mmol/L (136-145) 05/08/19 23: Potassium 4.0 mmol/L (3.5-5.1) 05/08/19 23:29 Chloride 101 mmol/L (98-107) 05/08/19 23: Carbon Dioxide 28 mmol/L (21-32) 05/08/19 23: Anion Gap 11 MMOL/L (8-16) 05/08/19 23:29 BUN 15.0 mg/dL (7-18) 05/08/19 Creatinine 1.1 mg/dL (0.55-1.3) 05/08/19 Random Glucose 105 mg/dL (74-106) 05/08/19 Calcium 9.8 mg/dL (8.5-10.1) 05/08/19 Total Bilirubin 1.2 mg/dL (0.2-1) H 05/08/19 AST 19 U/L (15-37) 05/08/19 ALT 49 U/L (13-61) 05/08/19 Alkaline Phosphatase 93 U/L (45-117) 05/08/19 Total Protein 8.4 g/dl (6.4-8.2) H 05/08/19 Albumin 4.8 g/dl (3.4-5.0) 05/08/19 CARDIAC ENZYMES Troponin I < 0.02 ng/ml (0.00-0.05) 05/08/19 Assessment/Plan 34 year old male with PMH of HLD arrived to ED for left upper arm and left lower leg numbness, paresthesias that started last night prior to admission. Left lower leg also has pain " described as burning feeling. As per patient he fell a week ago tripped on the stairs and landed on left side. 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 Patient did say he was stressed and has not slept for 3- 4 days since his father is admitted at [facility]. Patient denies weakness, word slurring, facial weakness, headache. Head CT and cervical CT completed, per Er notes demonstrated llow attenuation in the right frontal convexityin the parafalcine location.. MRI with contrast of the brain was recommended. 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 There was no fracture or subluxations or jump facets. the patient does report continued sensory paresthesias in his left upper extremity and further imaging of the brain and spine were ordered. patient was started on statin due to LDL of 192, can reduce dose to 40mg. Overnight, MRI of the brain was completed and demonstrated 1.8 x 1.4 x 1.4 cm mass. Informed nurse practitionerand recommended neurosurgery and oncology evaluation. 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 There is presence of edema therefore I started Decadron 6 mg every 6 hours. Cervical spine MRI reviewed and did not demonstrate any cervical herniations, stenosis, normal spinal cord signal. Lumbar spine MRI didn't demonstrate L4/L5 protrusion and L5/S1 disc extrusion. Explain results in detail to the patient who was surprised by presence of intracerebral growth. Provided reassurance and counseling, informed him that further subspecialists would be evaluated further. Will D/c ASA 81 and reduce statin (should remain on statin). follow-up evaluations from Dr. Clemons and Dr. Mendez.
--- NOTE | 2019-05-10 09:08 | PN ---
Progress Note, Physician - Current Medication List Current Medications: Active Medications Acetaminophen (Tylenol -) 650 mg PO Q4H PRN PRN Reason: PAIN OR FEVER Aspirin (Ecotrin -) 81 mg PO DAILY DEVAN Atorvastatin Calcium (Lipitor -) 80 mg PO HS DEVAN Last Admin: 05/09/19 22:09 Dose: 80 mg - Objective Vital Signs: Vital Signs Temperature 97.9 F 05/10/19 05:28 Pulse Rate 59 L 05/10/19 05:28 Respiratory Rate 18 05/10/19 05:28 Blood Pressure 114/64 05/10/19 05:28 O2 Sat by Pulse Oximetry (%) 98 05/09/19 16:19 Cardiovascular: Yes: Regular Rate and Rhythm Respiratory: Yes: Regular, CTA Bilaterally Gastrointestinal: Yes: Normal Bowel Sounds, Soft Edema: No Neurological: Yes: Alert, Oriented. No: Pre-Existing Deficit Labs: CBC, BMP 05/08/19 23:29 05/08/19 23:29 INR, PTT INR 1.02 (0.83-1.09) 05/08/19 23:29 Assessment/Plan - Problems (1) Cervical pain (neck) Assessment/Plan: -neurology consult appreciated -CT C Spine+ head reviewed -MRI noted Code(s): M54.2 - CERVICALGIA (2) HLD (hyperlipidemia) Assessment/Plan: -on statin Code(s): E78.5 - HYPERLIPIDEMIA, UNSPECIFIED (3) Left arm numbness Assessment/Plan: -MRI of the brain demonstrated 1.8 x 1.4 x 1.4 cm mass -neurology consult appreciated -CT C Spine+ head reviewed -NS consult Code(s): R20.0 - ANESTHESIA OF SKIN (4) Left leg paresthesias Assessment/Plan: -await MRI lumbar spine Code(s): R20.2 - PARESTHESIA OF SKIN (5) Lumbar back pain -Mri noted with discogenic ds Code(s): M54.5 - LOW BACK PAIN
[2019-05-10] MEDS ORDERED: ATORVASTATIN CA 40 MG TABLET (FP) PO SCH (09:12)
[2019-05-10] MEDS ORDERED: ASPIRIN COATED 81 MG TABLET.EC PO SCH (10:00)
[2019-05-10] MEDS: DEXAMETHASONE 4 MG TABLET (FP) PO SCH ×2 (11:32→17:58)
--- NOTE | 2019-05-10 13:07 | PN ---
Progress Note (short form) - Note Progress Note: NEUROSURGERY CONSULT DICTATED H/o HLD c/o L upper arm (elbow to wrist) and left lower leg (knee to ankle) numbness, paresthesias the night prior to admission. Left lower leg with burning also. Fell a week ago after tripping on the stairs and landed on left side. Stressed and has not slept for 3-4 days since his father is admitted. Patient denies weakness, word slurring, facial weakness, headache. Continued sensory paresthesias in his left upper extremity. 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
[2019-05-10] MEDS: levETIRAcetam 500 MG TABLET (FP) PO SCH ×2 (14:05→22:14)
--- NOTE | 2019-05-10 14:05 | CONSULT ---
Consultation: REQUESTING PROVIDER: CONSULT REQUEST: Hematology and oncology consultation We have been asked to medically evaluate this patient for brain mass. HISTORY OF PRESENT ILLNESS: The patient is a 34 yo m w/ a PMH of HLD who came into the emergency department complaining of lefty sided numbness and tingling for the past 3 days. The patient states that he began feeling numbness on Wednesday and it has persisted since. He describes the sensation as a "pins and needles." It is constant and had no exacerbating or alleviating factors. He associates this sensation with numbness, but denies weakness or headaches. An MRI of the brain showed a 1.8 x 1.4 x 1.4 cm lesion in the left frontal lobe. Patient had no knowledge of this mass. Family history: Uncle with colon ca diagnosed in his 60's. The patient is unsure of the details. REVIEW OF SYSTEMS: CONSTITUTIONAL: Absent: fever, chills, diaphoresis, generalized weakness, malaise, loss of appetite, weight change HEENT: Absent: rhinorrhea, nasal congestion, throat pain, throat swelling, difficulty swallowing, mouth swelling, ear pain, eye pain, visual changes CARDIOVASCULAR: Absent: chest pain, syncope, palpitations, irregular heart rate, lightheadedness , peripheral edema RESPIRATORY: Absent: cough, shortness of breath, dyspnea with exertion, orthopnea, wheezing, stridor, hemoptysis GASTROINTESTINAL: Absent: abdominal pain, abdominal distension, nausea, vomiting, diarrhea, constipation, melena, hematochezia GENITOURINARY: Absent: dysuria, frequency, urgency, hesitancy, hematuria, flank pain, genital pain MUSCULOSKELETAL: Absent: myalgia, arthralgia, joint swelling, back pain, neck pain SKIN: Absent: rash, itching, pallor HEMATOLOGIC/IMMUNOLOGIC: Absent: easy bleeding, easy bruising, lymphadenopathy, frequent infections ENDOCRINE: Absent: unexplained weight gain, unexplained weight loss, heat intolerance, cold intolerance NEUROLOGIC: Absent: headache, focal weakness, dizziness, unsteady gait, seizure, mental status changes, bladder or bowel incontinence PSYCHIATRIC: Absent: anxiety, depression, suicidal or homicidal ideation, hallucinations. PHYSICAL EXAMINATION Vital Signs - 24 hr 05/09/19 05/09/19 05/09/19 13:54 15:53 16:19 Temperature 98.1 F 97.9 F 98.1 F Pulse Rate 97 H Pulse Rate [ 83 84 Apical] Respiratory 17 22 H 18 Rate Blood Pressure 126/94 Blood Pressure 130/96 133/85 [Right Arm] O2 Sat by Pulse 96 100 98 Oximetry (%) 05/09/19 05/10/19 05/10/19 19:00 02:00 05:28 Temperature 98.1 F 97.9 F 97.9 F Pulse Rate 91 H 63 59 L Pulse Rate [ Apical] Respiratory 18 18 18 Rate Blood Pressure 127/76 125/69 114/64 Blood Pressure [Right Arm] O2 Sat by Pulse Oximetry (%) 05/10/19 09:00 Temperature 98 F Pulse Rate 68 Pulse Rate [ Apical] Respiratory 18 Rate Blood Pressure 117/92 Blood Pressure [Right Arm] O2 Sat by Pulse Oximetry (%) GENERAL: Awake, alert, and fully oriented, in no acute distress. HEAD: Normal with no signs of trauma. EYES: Pupils equal, round and reactive to light, extraocular movements intact, sclera anicteric, conjunctiva clear. No lid lag. LUNGS: Breath sounds equal, clear to auscultation bilaterally. No wheezes, and no crackles. No accessory muscle use. HEART: Regular rate and rhythm, normal S1 and S2 without murmur, rub or gallop. Breast: No masses or lymphadenopathy felt. ABDOMEN: Soft, nontender, not distended, normoactive bowel sounds. LOWER EXTREMITIES: 2+ pulses, warm, well-perfused. No calf tenderness. No peripheral edema. NEUROLOGICAL: Cranial nerves II-X intact. Normal speech. Strength 5/5 b/l. Slight decrease in sensation over the left upper and lower extremities. SKIN: Warm, dry, normal turgor, no rashes or lesions noted. Genitals: Testicles normal in size. No masses felt. Penis normal. No inguinal lymphadenopathy felt. Laboratory Results - last 24 hr 05/09/19 13:35 Urine Color Yellow Urine Appearance Clear Urine pH 8.5 H D Ur Specific [place] 1.025 Urine Protein Negative Urine Glucose (UA) Negative Urine Ketones Negative Urine Blood Negative Urine Nitrite Negative Urine Bilirubin Negative Urine Urobilinogen 0.2 Ur Leukocyte Esterase Negative Active Medications Generic Name Dose Route Start Last Admin Trade Name Freq PRN Reason Stop Dose Admin Acetaminophen 650 mg 05/09/19 17:49 Tylenol - PO Q4H PRN PAIN OR FEVER Atorvastatin Calcium 40 mg 05/10/19 09:12 Lipitor - PO HS DEVAN Dexamethasone 6 mg 05/10/19 12:00 05/10/19 11:32 Decadron - PO 6 mg Q6HPO DEVAN Administration ASSESSMENT/PLAN: The patient is a 34 yo m w/ a PMH of HLD who came into the emergency department complaining of lefty sided numbness and tingling for the past 3 days. An MRI of the brain showed a 1.8 x 1.4 x 1.4 cm lesion in the left frontal lobe. #New brain mass -Neurology following; started patient on Decadron 6mg q6h as there was a concern for surrounding edema -neurosurgery following: discussing the different options with the patient including surgical resection and biopsy or surveillance. 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 In addition to this, these radiologists do not see any evidence of mass effect and would be comfortable with discontinuing steroids. -The definitive treatment for this condition will be determined by the conversation between neurosugery and the patient. Dispo: We will continue to follow the patient. Thank you for this consultative opportunity. <Ulises Kaye - Last Filed: 05/10/19 18:09> Consultation: REQUESTING PROVIDER: CONSULT REQUEST: We have been asked to medically evaluate this patient for ( specify). HISTORY OF PRESENT ILLNESS: REVIEW OF SYSTEMS: CONSTITUTIONAL: Absent: fever, chills, diaphoresis, generalized weakness, malaise, loss of appetite, weight change HEENT: Absent: rhinorrhea, nasal congestion, throat pain, throat swelling, difficulty swallowing, mouth swelling, ear pain, eye pain, visual changes CARDIOVASCULAR: Absent: chest pain, syncope, palpitations, irregular heart rate, lightheadedness , peripheral edema RESPIRATORY: Absent: cough, shortness of breath, dyspnea with exertion, orthopnea, wheezing, stridor, hemoptysis GASTROINTESTINAL: Absent: abdominal pain, abdominal distension, nausea, vomiting, diarrhea, constipation, melena, hematochezia GENITOURINARY: Absent: dysuria, frequency, urgency, hesitancy, hematuria, flank pain, genital pain MUSCULOSKELETAL: Absent: myalgia, arthralgia, joint swelling, back pain, neck pain SKIN: Absent: rash, itching, pallor HEMATOLOGIC/IMMUNOLOGIC: Absent: easy bleeding, easy bruising, lymphadenopathy, frequent infections ENDOCRINE: Absent: unexplained weight gain, unexplained weight loss, heat intolerance, cold intolerance NEUROLOGIC: Absent: headache, focal weakness or paresthesias, dizziness, unsteady gait, seizure, mental status changes, bladder or bowel incontinence PSYCHIATRIC: Absent: anxiety, depression, suicidal or homicidal ideation, hallucinations. PHYSICAL EXAMINATION Vital Signs - 24 hr 05/10/19 05/10/19 05/10/19 09:00 14:07 20:41 Temperature 98 F 98.2 F 97.9 F Pulse Rate 68 97 H 105 H Respiratory 18 20 20 Rate Blood Pressure 117/92 143/90 136/49 L O2 Sat by Pulse 100 Oximetry (%) 05/10/19 05/11/19 05/11/19 21:00 02:00 06:00 Temperature 97.7 F 97.8 F Pulse Rate 89 95 H Respiratory 20 18 18 Rate Blood Pressure 124/66 119/75 O2 Sat by Pulse 98 Oximetry (%) GENERAL: Awake, alert, and fully oriented, in no acute distress. HEAD: Normal with no signs of trauma. EYES: Pupils equal, round and reactive to light, extraocular movements intact, sclera anicteric, conjunctiva clear. No lid lag. EARS, NOSE, THROAT: Ears normal, nares patent, oropharynx clear without exudates. Moist mucous membranes. NECK: Normal range of motion, supple without lymphadenopathy, JVD, or masses. LUNGS: Breath sounds equal, clear to auscultation bilaterally. No wheezes, and no crackles. No accessory muscle use. HEART: Regular rate and rhythm, normal S1 and S2 without murmur, rub or gallop. ABDOMEN: Soft, nontender, not distended, normoactive bowel sounds, no guarding, no rebound, no masses. No hepatomegaly or splenomegaly. MUSCULOSKELETAL: Normal range of motion at all joints. No bony deformities or tenderness. No CVA tenderness. UPPER EXTREMITIES: 2+ pulses, warm, well-perfused. No cyanosis. No clubbing. Cap refill <2 seconds. No peripheral edema. LOWER EXTREMITIES: 2+ pulses, warm, well-perfused. No calf tenderness. No peripheral edema. NEUROLOGICAL: Cranial nerves II-XII intact. Normal speech. Normal gait. PSYCHIATRIC: Cooperative. Good eye contact. Appropriate mood and affect. SKIN: Warm, dry, normal turgor, no rashes or lesions noted. Active Medications Generic Name Dose Route Start Last Admin Trade Name Freq PRN Reason Stop Dose Admin Acetaminophen 650 mg 05/09/19 17:49 05/10/19 22:14 Tylenol - PO 650 mg Q4H PRN Administration PAIN OR FEVER Atorvastatin Calcium 40 mg 05/10/19 09:12 05/10/19 22:14 Lipitor - PO 40 mg HS DEVAN Administration Dexamethasone 6 mg 05/10/19 12:00 05/11/19 06:29 Decadron - PO 6 mg Q6HPO DEVAN Administration Levetiracetam 500 mg 05/10/19 13:45 05/10/19 22:14 Keppra - PO 500 mg BID DEVAN Administration ASSESSMENT/PLAN: Dispo: We will continue to follow the patient. Thank you for this consultative opportunity. <Chris Mendez - Last Filed: 05/11/19 07:58> Visit type - Emergency Visit Emergency Visit: Yes ED Registration Date: 05/09/19 Care time: The patient presented to the Emergency Department on the above date and was hospitalized for further evaluation of their emergent condition. - New Patient This patient is new to me today: Yes Date on this admission: 05/10/19 - Critical Care Critical Care patient: No <Ulises Kaye - Last Filed: 05/10/19 18:09> ATTENDING PHYSICIAN STATEMENT I saw and evaluated the patient. I reviewed the resident's note and discussed the case with the resident. I agree with the resident's findings and plan as documented. SUBJECTIVE: OBJECTIVE: ASSESSMENT AND PLAN: <Ulises Kaye - Last Filed: 05/10/19 18:09> ATTENDING PHYSICIAN STATEMENT I saw and evaluated the patient. I reviewed the resident's note and discussed the case with the resident. I agree with the resident's findings and plan as documented. SUBJECTIVE: OBJECTIVE: ASSESSMENT AND PLAN: <Chris Mendez - Last Filed: 05/11/19 07:58>
--- NOTE | 2019-05-10 15:45 | CONS ---
DATE OF CONSULTATION: 05/10/2019 CHIEF COMPLAINT: Probable new onset seizure. HISTORY OF PRESENT ILLNESS: Patient is a 34-year-old right-handed male with no significant past medical history who complains of a 2- to 3-day history of acute onset left lower arm and left lower leg numbness and paresthesia. There is burning sensation in his left leg as well. The area involved is from the elbow to the left wrist as well as from the left knee to the left ankle. He denies weakness. He had no loss of consciousness. He did fall about a week ago and bruised his right big toe. He has been under a lot of stress. He denies any loss of consciousness or prior seizure activities. He has no fever or chills. He has no family history of brain tumor. He has been stressed recently because of his father's peripheral arterial disease, and his father is still hospitalized. The patient denies any speech difficulty, headache, nausea, vomiting, or loss of bowel or bladder control. PAST MEDICAL HISTORY: Noncontributory. CURRENT MEDICATIONS: Include Decadron, Tylenol, and Lipitor. ALLERGIES: There is no known drug allergy. FAMILY HISTORY: Noncontributory except for peripheral arterial disease in his father. REVIEW OF SYSTEMS: Otherwise negative for major cardiovascular, pulmonary, gastrointestinal, genitourinary, endocrinological, neurological, psychological, or oncological problems except for the above. PHYSICAL EXAMINATION: Vital Signs: Temperature is 98, blood pressure is 117/92, his pulse rate is 68. HEENT: Shows him to be normocephalic, atraumatic, anicteric. Neck: Supple with no carotid bruits. Coronary: Demonstrates regular rhythm without a murmur. Lungs: Clear to auscultation bilaterally. Abdomen: Benign. Extremities: Show no sign of DVT. Distal pulses are 2+. Neurologic: He is awake, alert, and oriented x4. His speech is normal. Higher cortical function is intact. Cranial nerve examination is intact 2-12. Motor examination shows 5/5 strength of bilateral upper and lower extremities without a drift. Sensory examination is intact to light touch. Deep tendon reflexes are 2+ in upper extremities and 3+ in lower extremities. He has upgoing toe on the left. Gait is normal. Cerebellar examination demonstrates intact [id number] examination bilaterally. LABORATORY EXAMINATION: Shows a white blood cell count 7.9, hemoglobin 16.2, platelet count 313,000, INR 1.02. Serum sodium 139, potassium 4.0, BUN 15, creatinine 1.1. Total LDL is 192, total cholesterol is 270, triglycerides 231, albumin 4.8. Urinalysis negative. CT scan of the head demonstrated right anteromedial frontal parafalcine hypodensity with punctated calcification. There is no mass affect or shift. There is no hydrocephalus and there is no acute bleed. MRI of the brain with and without gadolinium demonstrated a right medial frontal parafalcine parenchyma 1.8 x 1.4 x 1.4 cm. There is calcification within the lesion. There are prominent draining veins around the lesion. There is no acute stroke noted. CT scan of the cervical spine demonstrates an incompletely formed posterior C1 arch. 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 MRI of the cervical spine demonstrated mild right C3-4 paracentral disk bulge. There is no stenosis. There is no Chiari I malformation. There is some loss of normal cervical lordosis. MRA lumbar spine demonstrated mild L4-5 disk bulge and mild-to- moderate L5-S1 degenerative disk disease. There is no compression of the thecal sac or lumbar nerve roots. IMPRESSION: 1. 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 2. Possible seizure disorder. 3. Hypercholesterolemia. RECOMMENDATIONS: Patient presented with 2-1/2 to 3-day history of acute onset left upper extremity and left lower extremity paresthesia and numbness. He has not experienced these sensations previously. His neurological examination is nonfocal. The MRI and CT scan finding is consistent with that of a low-grade tumor such as ganglioglioma, gangliocytoma, or low-grade oligodendroglioma. The exact identify cannot be ascertained without pathological specimen obviously. These type of tumors are known to be associated with epileptogenic activities, however, starting the patient on Keppra 500 mg p.o. b.i.d. There is no significant edema. 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 The patient has the option of undergoing stereotactic craniotomy for excision of the right medial frontal parafalcine parenchymal lesion for pathology analysis. The risks of the surgery include, but are not limited to, bleeding, infection, stroke, seizure, coma, , and other risks of general anesthesia. The patient has the option of continuing to observe this tumor with MRI in 3 months, 6 months, 1 year, and then yearly after that. The risks of not performing the surgery at this time is tumor progression and tumor degeneration into malignant tumors. The pros and cons of treatment approaches were discussed. All questions were answered. LINDSEY HENRY M.D. [id number] MTDD
[2019-05-11] MEDS: DEXAMETHASONE 4 MG TABLET (FP) PO SCH ×2 (00:42→06:29)
--- NOTE | 2019-05-11 07:58 | PN ---
Teaching Attending Note Name of Resident: Ulises Kaye ATTENDING PHYSICIAN STATEMENT I saw and evaluated the patient. I reviewed the resident's note and discussed the case with the resident. I agree with the resident's findings and plan as documented. SUBJECTIVE: Patient seen and examined Presented with 3 days of left sided numbness . Found to have a 1.8 x 1.4 x1.4 cm right frontal lobe mass with calcification. 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 Followed by neurosurgery. PMH- HPL Surgical history- removal of lipoma F.H. -uncle with colon ca(paternal) - Father and mother with hypertension ROS- numbness left upper extremity, left lower extremity P.E. HEENT: WILSON, EOM Intact Oropharynx: No thrush, No mucositis Neck: Supple Nodes: Without adenopathy Cor: RSR, No murmurs, No gallops Lungs: Clear to P&A Testes descended, uncircumcised Abd: Soft, Normal bowel sounds, No organomegaly Ext:No significant edema Skin: No rashes, Integument intact CBC, BMP 05/08/19 23:29 05/08/19 23:29 Current Medications Generic Name Dose Route Start Last Admin Trade Name Freq PRN Reason Stop Dose Admin Acetaminophen 650 mg 05/09/19 17:49 05/10/19 22:14 Tylenol - PO 650 mg Q4H PRN Administration PAIN OR FEVER Atorvastatin Calcium 40 mg 05/10/19 09:12 05/10/19 22:14 Lipitor - PO 40 mg HS DEVAN Administration Dexamethasone 6 mg 05/10/19 12:00 05/11/19 06:29 Decadron - PO 6 mg Q6HPO DEVAN Administration Levetiracetam 500 mg 05/10/19 13:45 05/10/19 22:14 Keppra - PO 500 mg BID DEVAN Administration CT and MRI of brain reviewed and discussed with Dr. 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 Management decisions per neurosurgery. As discussed, no obvious vasogenic edema on imaging , ?? need for decadron. OBJECTIVE: ASSESSMENT AND PLAN: endrroglioma
--- NOTE | 2019-05-11 08:04 | PN ---
Progress Note (short form) - Note Progress Note: Neurology - Admission Chief Complaint: left arm and leg numbness History of Present Illness: 34 year old male with PMH of HLD arrived to ED for left upper arm and left lower leg numbness, paresthesias that started last night prior to admission. Left lower leg also has pain " described as burning feeling. As per patient he fell a week ago tripped on the stairs and landed on left side. At the time of fall did not lose LOC, did have discoloration on the right big toe which is lace burn out tender to touch. Patient did say he was stressed and has not slept for 3- 4 days since his father is admitted at [facility]. Patient denies weakness, word slurring, facial weakness, headache. Head CT and cervical CT completed, per Er notes demonstrated llow attenuation in the right frontal convexityin the parafalcine location.. MRI with contrast of the brain was recommended. 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 There was no fracture or subluxations or jump facets. the patient does report continued sensory paresthesias in his left upper extremity and further imaging of the brain and spine were ordered. patient was started on statin due to LDL of 192, can reduce dose to 40mg. Overnight, MRI of the brain was completed and demonstrated 1.8 x 1.4 x 1.4 cm mass. Informed nurse practitioner and recommended neurosurgery and oncology evaluation. 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 Cervical spine MRI reviewed and did not demonstrate any cervical herniations, stenosis, normal spinal cord signal. Lumbar spine MRI didn't demonstrate L4/L5 protrusion and L5/S1 disc extrusion. Explain results in detail to the patient who was surprised by presence of intracerebral growth. Provided reassurance and patient is in better spirits this morning. Note from neurosurgeon, Dr. Clemons reviewed.. Also reviewed note from Dr. Mendez. Patient has been started on Kepprafor seizure prevention. Discontinued Decadron, minimal edema. Patient would list of questions for neurosurgeon and considering operative management but unsure if he wants to have it completed now orhave a second opinion. - Allergies Allergies/Adverse Reactions: Allergies Allergy/AdvReac Type Severity Reaction Status Date / Time No Known Allergies Allergy Verified 02/22/18 08:16 Active Medications Acetaminophen (Tylenol -) 650 mg PO Q4H PRN PRN Reason: PAIN OR FEVER Last Admin: 05/10/19 22:14 Dose: 650 mg Atorvastatin Calcium (Lipitor -) 40 mg PO HS [facility] Last Admin: 05/10/19 22:14 Dose: 40 mg Dexamethasone (Decadron -) 6 mg PO Q6HPO [facility] Last Admin: 05/11/19 06:29 Dose: 6 mg Levetiracetam (Keppra -) 500 mg PO BID [facility] Last Admin: 05/10/19 22:14 Dose: 500 mg Physical Examination Vital Signs: Vital Signs Period Temp Pulse Resp BP Sys/Garcia Pulse Ox Last 24 Hr 97.7 F-98.2 F 68-105 18-20 117-143/49-92 98-100 Constitutional: Yes: No Distress, Calm Eyes: Yes: Conjunctiva Clear, EOM Intact HENT: Yes: Atraumatic, Normocephalic Neck: Yes: Supple, Trachea Midline, Other (neck pain with some diffculty with ROM) Cardiovascular: Yes: Regular Rate and Rhythm Respiratory: Yes: Regular, CTA Bilaterally Gastrointestinal: Yes: Normal Bowel Sounds, Soft Musculoskeletal: Yes: WNL Extremities: Yes: WNL Edema: No Peripheral Pulses WNL: Yes Integumentary: Yes: WNL Neurological: aawake, alert, no slurred speech, cranial nerves intact, strength 5/5 in upper and lower extremities bilaterally, sensory reduced in left upper extremity to pinprick CBCD WBC 7.9 K/mm3 (4.0-10.0) 05/08/19 23:29 RBC 5.34 M/mm3 (4.00-5.60) 05/08/19 23:29 Hgb 16.2 GM/dL (11.7-16.9) 05/08/19 23:29 Hct 48.0 % (35.4-49) 05/08/19 23:29 MCV 89.9 fl (80-96) 05/08/19 23:29 MCHC 33.7 g/dl (32.0-35.9) 05/08/19 23:29 RDW 13.3 % (11.9-15.9) 05/08/19 23:29 Plt Count 313 K/MM3 (134-434) 05/08/19 23:29 MPV 9.1 fl (7.5-11.1) 05/08/19 23:29 CMP Sodium 139 mmol/L (136-145) 05/08/19 23:29 Potassium 4.0 mmol/L (3.5-5.1) 05/08/19 23:29 Chloride 101 mmol/L (98-107) 05/08/19 23: Carbon Dioxide 28 mmol/L (21-32) 05/08/19: Anion Gap 11 MMOL/L (8-16) 05/08/19 23: BUN 15.0 mg/dL (7-18) 05/08/19 23: Creatinine 1.1 mg/dL (0.55-1.3) 05/08/19: Random Glucose 105 mg/dL (74-106) 05/08/19: Calcium 9.8 mg/dL (8.5-10.1) 05/08/19: Total Bilirubin 1.2 mg/dL (0.2-1) H 05/08/19 23:29 AST 19 U/L (15-37) 05/08/19:29 ALT 49 U/L (13-61) 05/08/19: Alkaline Phosphatase 93 U/L (45-117) 05/08/19: Total Protein 8.4 g/dl (6.4-8.2) H 05/08/19 23: Albumin 4.8 g/dl (3.4-5.0) 05/08/19: CARDIAC ENZYMES Troponin I < 0.02 ng/ml (0.00-0.05) 05/08/19 23:29 Assessment/Plan 34 year old male with PMH of HLD arrived to ED for left upper arm and left lower leg numbness, paresthesias that started last night prior to admission. Left lower leg also has pain " described as burning feeling. As per patient he fell a week ago tripped on the stairs and landed on left side. At the time of fall did not lose LOC, did have discoloration on the right big toe which is lace burn out tender to touch. Patient did say he was stressed and has not slept for 3- 4 days since his father is admitted at [facility]. Patient denies weakness, word slurring, facial weakness, headache. Head CT and cervical CT completed, per Er notes demonstrated llow attenuation in the right frontal convexityin the parafalcine location.. MRI with contrast of the brain was recommended. 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 There was no fracture or subluxations or jump facets. the patient does report continued sensory paresthesias in his left upper extremity and further imaging of the brain and spine were ordered. patient was started on statin due to LDL of 192, can reduce dose to 40mg. Overnight, MRI of the brain was completed and demonstrated 1.8 x 1.4 x 1.4 cm mass. Informed nurse practitionerand recommended neurosurgery and oncology evaluation. 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 Cervical spine MRI reviewed and did not demonstrate any cervical herniations, stenosis, normal spinal cord signal. Lumbar spine MRI didn't demonstrate L4/L5 protrusion and L5/S1 disc extrusion. Explain results in detail to the patient who was surprised by presence of intracerebral growth. Provided reassurance and patient is in better spirits this morning. Note from neurosurgeon, Dr. Clemons reviewed.. Also reviewed note from Dr. Mendez. Patient has been started on Kepprafor seizure prevention. Discontinued Decadron, minimal edema. Patient would list of questions for neurosurgeon and considering operative management but unsure if he wants to have it completed now orhave a second opinion. Follow -up evaluations from Dr. Clemons.
--- NOTE | 2019-05-11 10:05 | PN ---
Progress Note (short form) - Note Progress Note: NEUROSURGERY H/o HLD c/o L upper arm (elbow to wrist) and left lower leg (knee to ankle) numbness, paresthesias the night prior to admission. Left lower leg with burning also. Fell a week ago after tripping on the stairs and landed on left side. Patient denies weakness, word slurring, facial weakness, headache. Continued sensory paresthesias in his left upper/lower extremity, but better since Keppra started. 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
[2019-05-11] MEDS: levETIRAcetam 500 MG TABLET (FP) PO SCH (10:13)
[2019-05-11 10:27] VITALS: BP 129/87; PULSE 98; TEMP 98
--- NOTE | 2019-05-11 15:40 | DS ---
Physical Examination Vital Signs: Vital Signs Temperature 98 F 05/11/19 10:00 Pulse Rate 98 H 05/11/19 10:00 Respiratory Rate 18 05/11/19 10:00 Blood Pressure 129/87 05/11/19 10:00 O2 Sat by Pulse Oximetry (%) 98 05/11/19 09:00 Constitutional: Yes: Calm Cardiovascular: Yes: Regular Rate and Rhythm, S1, S2 Respiratory: Yes: CTA Bilaterally Gastrointestinal: Yes: Normal Bowel Sounds, Soft Edema: No Neurological: Yes: Alert, Oriented Labs: CBC, BMP 05/08/19 23:29 05/08/19 23:29 Discharge Summary Problems reviewed: Yes Reason For Visit: ABNORMAL COMPUTED TOMOGRAPHY OF HEAD, LESION OF Current Active Problems Abnormal head CT (Acute) Brain lesion (Acute) Cervical pain (neck) (Acute) HLD (hyperlipidemia) (Acute) Left arm numbness (Acute) Left leg paresthesias (Acute) Lumbar back pain (Acute) Other Procedures: MRI cortical lesion noted in frontal lobe. lumbar and spine MRI done Hospital Course: - Primary Care Physician PCP: Dr. sifuentes - Admission Chief Complaint: left arm and leg numbness History of Present Illness: 34 year old male with PMH of HLD arrived to ED for left upper arm and left lower leg numbness, paresthesias that started last night. Left lower leg also has pain " described as burning feeling. As per patient he fell a week ago tripped on the stairs and landed on left side. At the time of fall did not lose LOC, did have discoloration on the right big toe which is [employer] to touch. Patient did say he was stressed and has not slept for 3-4 days since his father is admitted at [facility]. Patient denies weakness, word slurring, facial weakness, headache. seen by [facility] and oncology- frontal lobe mass with calcifications noted Condition: Stable - Instructions Referrals: Campbell Sifuentes MD [Staff Physician] - 1 Week Disposition: HOME - Home Medications Comprehensive Discharge Medication List: Ambulatory Orders Cholecalciferol (Vitamin D3) [Vitamin D -] 400 unit PO DAILY 02/09/19 Pantoprazole Sodium [Protonix -] 20 mg PO DAILY #30 tablet.ec 02/09/19
--- NOTE | 2019-05-11 18:05 | PN ---
Progress Note (short form) - Note Progress Note: Hematology oncology follow up Subjective: patient seen and examined at bedside. no events overnight, no new complaints. Objective: Vital Signs Temperature 98 F 05/11/19 10:00 Pulse Rate 98 H 05/11/19 10:00 Respiratory Rate 18 05/11/19 10:00 Blood Pressure 129/87 05/11/19 10:00 O2 Sat by Pulse Oximetry (%) 98 05/11/19 09:00 PE: Gen: awake, alert in NAD Lungs: CTA b/l down to the bases Heart: RRR s1, s2, heard no murmurs, gallops, rubs Abdomen: soft, nontender, nondistended. bowel sounds heard Neuro: CN 2-10 intact. No weakness. Previously noted deficits improved. CBC, BMP 05/08/19 23:29 05/08/19 23:29 Assessment and plan: The patient is a 34 yo m w/ a PMH of HLD who came into the emergency department complaining of lefty sided numbness and tingling for the past 3 days. An MRI of the brain showed a 1.8 x 1.4 x 1.4 cm lesion in the left frontal lobe. #New brain mass -Decadron d/c -Patient is opting to get a second option and f/u as an outpatient for further treatment. Patient intends to intervene surgically within the month. -Patient stable for discharge from medical oncology standpoint.
== END 2019-05-11 18:12 | disposition home or self-care (01) | DRG 72 ==
LOC: JER 22:46 → JERBED 05-09 00:36 → J4W 05-09 16:13
PROVIDERS: ADMIT Family Medicine; ATTEND Family Medicine
DX: G93.89 Other specified disorders of brain (principal); E78.5 Hyperlipidemia, unspecified; R93.0 Abnormal findings on diagnostic imaging of skull and head, not elsewhere classified; R20.0 Anesthesia of skin; M54.5 Low back pain; M54.2 Cervicalgia
CPT/HCPCS: 36415; 70450-TC; 70553-TC; 72125-TC; 72141-TC; 72148-TC; 80053; 80061; 81003; 83721; 84484; 85025; 85610; 93005; 93010; 99285-25; A9579; J7030

== ENCOUNTER 2021-08-29 04:18 | Emergency (ER) | payer OTHER ==
[2021-08-29 04:34] VITALS: BP 148/98; PULSE 94; TEMP 98.7; BMI 34.4
[2021-08-29] MEDS ORDERED: FAMOTIDINE 20 MG TABLET PO ONE (05:19)
[2021-08-29] MEDS ORDERED: MAG HYDROX/AL HYDROX/SIMETH -MYLANTA- ORAL SUSPENSION PO ONE (05:19)
[2021-08-29] MEDS ORDERED: ACETAMINOPHEN 325 MG TABLET (FP) PO ONE (05:20)
[2021-08-29] MEDS ORDERED: ASPIRIN 81 MG CHEWABLE TABLETS PO ONE (05:20)
[2021-08-29] MEDS ORDERED: ACETAMINOPHEN 325 MG TABLET (FP) ONE (05:38)
[2021-08-29] MEDS ORDERED: ASPIRIN 81 MG CHEWABLE TABLETS ONE (05:38)
[2021-08-29] MEDS ORDERED: FAMOTIDINE 20 MG TABLET ONE (05:38)
[2021-08-29] MEDS ORDERED: MAG HYDROX/AL HYDROX/SIMETH 30 ML UNIT-DOSE CUP ONE (05:39)
[2021-08-29 05:59] LABS: BASO % 0.6 % (0-2.0); EOS % 1.6 % (0-4.5); HEMATOCRIT 47.1 % (35.4-49); HEMOGLOBIN 15.6 GM/dL (11.7-16.9); MCH 29.4 pg (25.7-33.7); MCHC 33.2 g/dl (32.0-35.9); MEAN CELL VOLUME 88.7 fl (80-96); MEAN PLT VOLUME 8.7 fl (7.5-11.1); MONO % 7.4 % (3.8-10.2); NEUT % 65.4 % (42.8-82.8); PLATELET COUNT 334 10^3/uL (134-434); RBC 5.31 M/mm3 (4.00-5.60); RDW 13.5 % (11.9-15.9); WHITE BLOOD COUNT 7.3 K/mm3 (4.0-10.0)
[2021-08-29 06:20] LABS: CHLORIDE 104 mmol/L (98-107); SODIUM 140 mmol/L (136-145)
[2021-08-29 06:22] LABS: ALBUMIN 4.4 g/dl (3.4-5.0); ANION GAP 9 MMOL/L (8-16); CALCIUM 9.4 mg/dL (8.5-10.1); CO2 27 mmol/L (21-32); GLUCOSE,RANDOM 108 mg/dL (74-106)
[2021-08-29 06:23] LABS: BLOOD UREA NITROGEN 14.8 mg/dL (7-18)
[2021-08-29 06:25] LABS: SGPT/ALT 56 U/L (13-61)
[2021-08-29 06:26] LABS: SGOT/AST 20 U/L (15-37)
[2021-08-29 06:27] LABS: BILIRUBIN,TOTAL 0.9 mg/dL (0.2-1); TOT PROT 7.8 g/dl (6.4-8.2)
[2021-08-29 06:28] LABS: ALK PHOS 81 U/L (45-117)
== END 2021-08-29 07:05 | disposition home or self-care (01) ==
LOC: JER 04:18
DX: R07.9 Chest pain, unspecified (principal)
CPT/HCPCS: 36415; 71046-TC-FY; 80053; 84443; 84484; 85025; 93005; 93010; 99284-25

== ENCOUNTER 2021-08-31 16:56 | Emergency (ER) | payer OTHER ==
[2021-08-31 17:10] VITALS: BP 134/82; PULSE 67; TEMP 97; BMI 34.4
== END 2021-08-31 21:48 | disposition home or self-care (01) ==
LOC: JERFT 16:56
DX: M79.604 Pain in right leg (principal)
CPT/HCPCS: 85379; 93971-TC; 99284-25

== ENCOUNTER 2022-07-04 05:55 | Emergency (ER) | payer OTHER ==
[2022-07-04 06:16] VITALS: TEMP 98.6; BMI 34.4
[2022-07-04] MEDS ORDERED: IBUPROFEN 600 MG TABLET (FP) PO ONE ×2 (06:26→06:31)
[2022-07-04] MEDS ORDERED: MAG HYDROX/AL HYDROX/SIMETH 30 ML UNIT-DOSE CUP PO ONE (07:55)
[2022-07-04] MEDS ORDERED: FAMOTIDINE 20 MG/50 ML IVPB 20 MG/50 ML MG IVPB ONE ×2 (07:56→08:25)
[2022-07-04] MEDS ORDERED: MAG HYDROX/AL HYDROX/SIMETH 30 ML UNIT-DOSE CUP ONE (08:25)
[2022-07-04 08:42] LABS: BASO % 0.6 % (0-2.0); EOS % 0.9 % (0-4.5); HEMATOCRIT 45.7 % (35.4-49); HEMOGLOBIN 15.6 GM/dL (11.7-16.9); MCH 30.6 pg (25.7-33.7); MCHC 34.1 g/dl (32.0-35.9); MEAN CELL VOLUME 89.7 fl (80-96); MEAN PLT VOLUME 8.7 fl (7.5-11.1); MONO % 7.1 % (3.8-10.2); NEUT % 68.4 % (42.8-82.8); PLATELET COUNT 311 10^3/uL (134-434); RDW 13.7 % (11.9-15.9); WHITE BLOOD COUNT 7.5 K/mm3 (4.0-10.0)
[2022-07-04 08:57] LABS: CALCIUM 9.3 mg/dL (8.5-10.1)
[2022-07-04 08:59] LABS: ALBUMIN 4.2 g/dl (3.4-5.0); BLOOD UREA NITROGEN 12.2 mg/dL (7-18)
[2022-07-04 09:01] VITALS: BP 139/96; PULSE 76; RESP 16
[2022-07-04 09:03] LABS: BILIRUBIN,TOTAL 1.2 mg/dL (0.2-1); TOT PROT 7.6 g/dl (6.4-8.2)
== END 2022-07-04 09:40 | disposition home or self-care (01) ==
LOC: JER 05:55
PROC: 3E033GC Introduction of Other Therapeutic Substance into Peripheral Vein, Percutaneous Approach (ICD-10-PCS; principal; 2022-07-04)
DX: R07.89 Other chest pain (principal)
CPT/HCPCS: 36415; 71046-TC-FY; 80053; 83735; 84484; 85025; 93005; 93010; 99285-25

== ENCOUNTER 2022-11-06 01:22 | Emergency (ER) | payer OTHER ==
[2022-11-06 01:26] VITALS: BMI 34.4
[2022-11-06] MEDS ORDERED: MAG HYDROX/AL HYDROX/SIMETH 30 ML UNIT-DOSE CUP PO ONE (02:11)
[2022-11-06] MEDS ORDERED: FAMOTIDINE 10 MG TABLET PO ONE (02:11)
[2022-11-06] MEDS ORDERED: MAG HYDROX/AL HYDROX/SIMETH 30 ML UNIT-DOSE CUP ONE (02:21)
[2022-11-06] MEDS ORDERED: FAMOTIDINE 10 MG TABLET ONE (02:21)
[2022-11-06 02:44] LABS: BASO % 0.4 % (0-2.0); EOS % 1.2 % (0-4.5); HEMATOCRIT 43.5 % (35.4-49); HEMOGLOBIN 14.9 GM/dL (11.7-16.9); LYMPH % 26.5 % (8-40); MCHC 34.2 g/dl (32.0-35.9); MEAN CELL VOLUME 87.6 fl (80-96); MEAN PLT VOLUME 8.4 fl (7.5-11.1); MONO % 7.2 % (3.8-10.2); NEUT % 64.7 % (42.8-82.8); PLATELET COUNT 317 10^3/uL (134-434); RBC 4.97 M/mm3 (4.00-5.60); RDW 13.5 % (11.9-15.9)
[2022-11-06 03:18] LABS: BLOOD UREA NITROGEN 16.9 mg/dL (7-18); CALCIUM 9.2 mg/dL (8.5-10.1)
[2022-11-06 03:19] LABS: ALBUMIN 4.2 g/dl (3.4-5.0)
[2022-11-06 03:22] LABS: CREATININE 0.9 mg/dL (0.55-1.3); TOT PROT 7.6 g/dl (6.4-8.2)
[2022-11-06 06:44] VITALS: BP 129/78; PULSE 66; RESP 18; TEMP 97.3
== END 2022-11-06 06:47 | disposition home or self-care (01) ==
LOC: JER 01:22
DX: R07.9 Chest pain, unspecified (principal)
CPT/HCPCS: 0241U-QW; 36415; 71045-TC-FY; 80053; 83735; 84484; 85025; 93005; 93010; 99285-25

== ENCOUNTER 2022-11-20 04:24 | Day surgery (SDC) | payer OTHER ==
[2022-11-13 11:34] VITALS: BMI 35.2
[2022-11-20] MEDS ORDERED: MIDAZOLAM HCL 2 MG/2 ML SINGLE DOSE VIAL ONE (07:28)
[2022-11-20] MEDS ORDERED: PROPOFOL 20 ML ONE ×2 (07:28→08:43)
[2022-11-20] MEDS ORDERED: ceFAZolin SODIUM 1 GM VIAL IVPB ONE (08:36)
[2022-11-20] MEDS ORDERED: LIDOCAINE 1%/EPI 1:100000 (20 ML MULTI DOSE VIAL) IJ ONE (08:45)
[2022-11-20] MEDS ORDERED: PROMETHAZINE HCL 25 MG/1 ML VIAL IVPB PRN (09:23)
[2022-11-20] MEDS ORDERED: ACETAMINOPHEN 500 MG TABLET (FP) PO PRN (09:23)
[2022-11-20] MEDS ORDERED: oxyCODONE HCL 5 MG TABLET PO PRN (09:23)
[2022-11-20 10:29] VITALS: RESP 20
[2022-11-20 13:22] VITALS: BP 120/70; PULSE 70; TEMP 97
== END 2022-11-20 12:00 | disposition home or self-care (01) ==
LOC: JASU-SURG 04:24
PROVIDERS: ATTEND Surgery
PROC: 0JB50ZZ Excision of Left Neck Subcutaneous Tissue and Fascia, Open Approach (ICD-10-PCS; principal; 2022-11-20 08:00)
DX: D17.0 Benign lipomatous neoplasm of skin and subcutaneous tissue of head, face and neck (principal)
CPT/HCPCS: 88304-TC; 94760

== ENCOUNTER 2024-06-04 03:57 | Emergency (ER) | payer OTHER ==
[2024-06-04 04:11] VITALS: BP 159/94; PULSE 92; RESP 22; TEMP 97.5; BMI 30.5
[2024-06-04] MEDS ORDERED: ACETAMINOPHEN INJECTION 100 ML ONE (04:38)
[2024-06-04] MEDS ORDERED: MAG HYDROX/AL HYDROX/SIMETH 30 ML UNIT-DOSE CUP ONE (04:38)
[2024-06-04] MEDS ORDERED: FAMOTIDINE 20 MG/50 ML IVPB 20 MG/50 ML MG IVPB ONE (04:38)
[2024-06-04] MEDS: FAMOTIDINE 20 MG/50 ML IVPB 20 MG/50 ML MG IVPB ONE (04:53)
[2024-06-04] MEDS: ACETAMINOPHEN 1000 MG/100 ML BAG IVPB ONE (04:53)
[2024-06-04] MEDS: MAG HYDROX/AL HYDROX/SIMETH 30 ML UNIT-DOSE CUP PO ONE (04:53)
[2024-06-04 05:21] LABS: BASO % 0.6 % (0-2.0); EOS % 1.2 % (0-4.5); HEMATOCRIT 44.7 % (35.4-49); HEMOGLOBIN 15.4 GM/dL (11.7-16.9); LYMPH % 28.7 % (8-40); MCH 30.6 pg (25.7-33.7); MCHC 34.4 g/dl (32.0-35.9); MEAN CELL VOLUME 88.9 fl (80-96); MEAN PLT VOLUME 8.8 fl (7.5-11.1); NEUT % 62.5 % (42.8-82.8); PLATELET COUNT 319 10^3/uL (134-434); RBC 5.03 M/mm3 (4.00-5.60); RDW 13.6 % (11.9-15.9); WHITE BLOOD COUNT 8.3 K/mm3 (4.0-10.0)
[2024-06-04 05:26] LABS: POTASSIUM 3.9 mmol/L (3.5-5.1)
[2024-06-04 05:28] LABS: CALCIUM 9.3 mg/dL (8.5-10.1)
[2024-06-04 05:29] LABS: BLOOD UREA NITROGEN 14.4 mg/dL (7-18)
[2024-06-04 05:33] LABS: TOT PROT 7.4 g/dl (6.4-8.2)
[2024-06-04] MEDS ORDERED: KETOROLAC TROMETHAMINE 30 MG/1 ML VIAL ONE (07:10)
[2024-06-04] MEDS: KETOROLAC TROMETHAMINE 30 MG/1 ML VIAL IVPUSH ONE (07:16)
== END 2024-06-04 07:31 | disposition home or self-care (01) ==
LOC: JER 03:57
PROC: 3E033GC Introduction of Other Therapeutic Substance into Peripheral Vein, Percutaneous Approach (ICD-10-PCS; principal; 2024-06-04)
PROC: 3E033NZ Introduction of Analgesics, Hypnotics, Sedatives into Peripheral Vein, Percutaneous Approach (ICD-10-PCS; 2024-06-04)
PROC: 3E0333Z Introduction of Anti-inflammatory into Peripheral Vein, Percutaneous Approach (ICD-10-PCS; 2024-06-04)
DX: R07.2 Precordial pain (principal)
CPT/HCPCS: 36415; 71046-TC-FY; 80053; 84484; 85025; 93005; 93010; 99285-25; J0131

== ENCOUNTER 2024-12-27 08:38 | Emergency (ER) | payer OTHER ==
[2024-12-27 09:04] VITALS: BP 119/71; PULSE 81; RESP 20; TEMP 98.2; BMI 36.1
[2024-12-27] MEDS ORDERED: KETOROLAC TROMETHAMINE 30 MG/1 ML VIAL ONE (09:10)
[2024-12-27] MEDS ORDERED: LIDOCAINE 4% PATCH TP ONE (09:10)
[2024-12-27] MEDS ORDERED: ACETAMINOPHEN 500 MG TABLET (FP) ONE (09:11)
[2024-12-27] MEDS: ACETAMINOPHEN 500 MG TABLET (FP) PO ONE (09:16)
[2024-12-27] MEDS: KETOROLAC TROMETHAMINE 30 MG/1 ML VIAL IM ONE (09:16)
[2024-12-27] MEDS: LIDOCAINE 4% PATCH TP ONE (09:16)
[2024-12-27] MEDS ORDERED: LIDOCAINE PATCH REMOVAL MC SCH (22:00)
== END 2024-12-27 09:40 | disposition home or self-care (01) ==
LOC: JER 08:38
PROC: 3E0233Z Introduction of Anti-inflammatory into Muscle, Percutaneous Approach (ICD-10-PCS; principal; 2024-12-27)
DX: M54.50 Low back pain, unspecified (principal); G89.29 Other chronic pain; R20.2 Paresthesia of skin
CPT/HCPCS: 99284-25